=== PATIENT | female | born 1975 | race Caucasian/White ===

== ENCOUNTER 2018-12-11 11:17 | Emergency (ER) | payer OTHER ==
[~2018-12-11] VITALS: Ht 167.6 cm; Wt 72.0 kg
[~2018-12-11 11:17] MED LIST: DOXYCYCL HYC100 MG PO; HYDROCORTISO2.51 EX; MULTIVITAMI9 PO; PROZAC20 MG PO; SYNTHROID175 MCG PO; TERBINAFINE250 MG PO; TRILEPTAL600 M1 PO; [UNRECOGNIZED DRUG - OTHER] PO
[2018-12-11] MEDS ORDERED: DULOXETINE HCL30 MG PO (11:54)
[2018-12-11] MEDS ORDERED: LEVOTHYROXIN200 MCG PO (11:54)
[2018-12-11] MEDS ORDERED: ELIMITE52 TOP (11:55)
[2018-12-11] MEDS ORDERED: NEURONTIN300 MG PO (11:56)
[2018-12-11] MEDS ORDERED: CYCLOBENZAPR10 MG PO (11:56)
[2018-12-11] MEDS ORDERED: DICLOFENAC SODI75 M1 PO (11:56)
[2018-12-11] MEDS ORDERED: MULTIVITAMI1 PO (11:57)
[2018-12-11] MEDS ORDERED: MEDDOSEPAK PO ×2 (11:57→12:10)
[2018-12-11] MEDS ORDERED: HYDROXYZ HCL25 MG PO (11:58)
[2018-12-11] MEDS ORDERED: PERMETHRIN5 % EX (12:10)
[2018-12-11] MEDS ORDERED: METRONIDAZOL500 MG PO (12:10)
[2018-12-11 12:20] VITALS: BP 138/77
== END 2018-12-11 12:20 | disposition home or self-care (01) ==
LOC: ED 11:17
DX: L30.9 Dermatitis, unspecified (principal); N76.0 Acute vaginitis; R21 Rash and other nonspecific skin eruption; L29.9 Pruritus, unspecified

== ENCOUNTER 2019-01-08 21:14 | Emergency (ER) | payer OTHER ==
[~2019-01-08] VITALS: Ht 167.6 cm; Wt 68.1 kg
[~2019-01-08 21:14] MED LIST changes: +CYCLOBENZAPR10 MG PO; +DICLOFENAC SODI75 M1 PO; +DULOXETINE HCL30 MG PO; +ELIMITE52 TOP; +HYDROXYZ HCL25 MG PO; +LEVOTHYROXIN200 MCG PO; +MEDDOSEPAK PO; +METRONIDAZOL500 MG PO; +MULTIVITAMI1 PO; +NEURONTIN300 MG PO; +PERMETHRIN5 % EX
[2019-01-08] MEDS ORDERED: VOLTAREN - GENE75 MG PO (23:22)
[2019-01-08] MEDS ORDERED: TYLENOL # 31 TAB PO (23:23)
[2019-01-08 23:48] VITALS: BP 103/65
== END 2019-01-08 23:48 | disposition home or self-care (01) ==
LOC: ED 21:14
DX: S01.112A Laceration without foreign body of left eyelid and periocular area, initial encounter (principal); S60.511A Abrasion of right hand, initial encounter; S60.512A Abrasion of left hand, initial encounter; S60.812A Abrasion of left wrist, initial encounter; S50.812A Abrasion of left forearm, initial encounter; T14.8XXA Other injury of unspecified body region, initial encounter; E03.9 Hypothyroidism, unspecified; F17.210 Nicotine dependence, cigarettes, uncomplicated; V87.8XXA Person injured in other specified noncollision transport accidents involving motor vehicle (traffic), initial encounter

== ENCOUNTER 2019-03-23 17:16 | Emergency (ER) | payer OTHER ==
[~2019-03-23] VITALS: Ht 167.6 cm; Wt 75.0 kg
[~2019-03-23 17:16] MED LIST changes: +FLEXERIL PO; +TYLENOL # 31 TAB PO; +VOLTAREN - GENE75 MG PO
[2019-03-23 18:27] LABS: URINE BILIRUBIN - DIPSTICK NEGATIVE (NEGATIVE); URINE BLOOD DIPSTICK MODERATE (NEGATIVE); URINE COLOR YELLOW; URINE GLUCOSE - DIPSTICK NEGATIVE (NEGATIVE); URINE KETONE NEGATIVE (NEGATIVE); URINE NITRITE - DIPSTICK NEGATIVE (Negative); URINE PROTEIN - DIPSTICK TRACE mg/dL (NEG-TRACE); URINE UROBILINOGEN - DIPSTICK 0.2 E.U./dL (0.2)
[2019-03-23 18:30] LABS: URINE LEUK ESTERASE MODERATE (NEGATIVE)
[2019-03-23 18:38] LABS: URINE SQUAMOUS EPITHELIAL CELL FEW EPI/hpf (0-FEW); URINE WBC >100 WBC/hpf (0-5)
[2019-03-23] MEDS ORDERED: FLONASE AL50 MCG/ACT (20:14)
[2019-03-23] MEDS ORDERED: CLARITIN10 M1 PO (20:14)
[2019-03-23] MEDS ORDERED: ULTRAM50 M1 PO (20:14)
[2019-03-23] MEDS ORDERED: BACTRIM DS1 TAB PO (20:20)
[2019-03-23 20:25] VITALS: BP 121/76
== END 2019-03-23 20:25 | disposition home or self-care (01) ==
LOC: ED 17:16
PROVIDERS: Emergency Medicine
DX: S09.8XXA Other specified injuries of head, initial encounter (principal); N39.0 Urinary tract infection, site not specified; B96.20 Unspecified Escherichia coli [E. coli] as the cause of diseases classified elsewhere; F17.200 Nicotine dependence, unspecified, uncomplicated

== ENCOUNTER 2019-03-26 14:18 | Emergency (ER) | payer OTHER ==
[~2019-03-26] VITALS: Ht 167.6 cm; Wt 70.9 kg
[~2019-03-26 14:18] MED LIST changes: +BACTRIM DS1 TAB PO; +CLARITIN10 M1 PO; +FLONASE AL50 MCG/ACT; +ULTRAM50 M1 PO
[2019-03-26] MEDS ORDERED: DULOXETINE HCL30 MG PO (14:32)
[2019-03-26 15:18] VITALS: BP 112/59
== END 2019-03-26 15:18 | disposition home or self-care (01) ==
LOC: ED 14:18
DX: S20.212A Contusion of left front wall of thorax, initial encounter (principal); E03.9 Hypothyroidism, unspecified; F17.200 Nicotine dependence, unspecified, uncomplicated; W18.30XA Fall on same level, unspecified, initial encounter; Y92.009 Unspecified place in unspecified non-institutional (private) residence as the place of occurrence of the external cause

== ENCOUNTER 2019-04-04 18:39 | Emergency (ER) | payer OTHER ==
[~2019-04-04] VITALS: Ht 167.6 cm; Wt 72.0 kg
[2019-04-04] MEDS ORDERED: DULOXETINE HCL30 MG PO (19:09)
[2019-04-04] MEDS ORDERED: NAPROXEN500 MG PO (19:18)
[2019-04-04] MEDS ORDERED: MEDDOSEPAK PO (19:18)
[2019-04-04 19:35] VITALS: BP 111/72
== END 2019-04-04 19:35 | disposition home or self-care (01) ==
LOC: ED 18:39
DX: M25.532 Pain in left wrist (principal); M25.531 Pain in right wrist; M25.542 Pain in joints of left hand; M25.541 Pain in joints of right hand; M25.552 Pain in left hip; M25.551 Pain in right hip; E03.9 Hypothyroidism, unspecified; F17.210 Nicotine dependence, cigarettes, uncomplicated

== ENCOUNTER 2019-10-10 | Emergency (ER) | payer SELFPAY ==
[~2019-10-10] MED LIST changes: +NAPROXEN500 MG PO
[2019-10-10] MEDS ORDERED: REXULTI2 MG (13:17)
[2019-10-10] MEDS ORDERED: DULOXETINE HYDR40 MG (13:22)
[2019-10-10] MEDS ORDERED: AMITRIPTYLIN25 MG PO (13:24)
--- NOTE | 2019-10-13 09:17 | NUR ---
Notified patient of Covid results (Negative). Advised patient to follow up with PCP or return to ED with urgent needs. Advised pt to continue practicing Covid prevention including social distancing and hand washing.
== END 2019-10-10 13:55 | disposition home or self-care (01) | DRG 153 ==
DX: J06.9 Acute upper respiratory infection, unspecified (principal); E03.9 Hypothyroidism, unspecified; F17.200 Nicotine dependence, unspecified, uncomplicated; Z20.828 Contact with and (suspected) exposure to other viral communicable diseases

== ENCOUNTER 2020-01-02 17:04 | Emergency (ER) | payer OTHER ==
[~2020-01-02] VITALS: Ht 167.6 cm; Wt 85.0 kg
[~2020-01-02 17:04] MED LIST changes: +AMITRIPTYLIN25 MG PO; +DULOXETINE HYDR40 MG; +REXULTI2 MG
[2020-01-02] MEDS ORDERED: CYCLOBENZAPR5 MG PO (18:32)
[2020-01-02 18:53] VITALS: BP 128/76
== END 2020-01-02 18:53 | disposition home or self-care (01) | DRG 563 ==
LOC: ED 17:04
DX: S39.012A Strain of muscle, fascia and tendon of lower back, initial encounter (principal); S16.1XXA Strain of muscle, fascia and tendon at neck level, initial encounter; F17.200 Nicotine dependence, unspecified, uncomplicated; V89.2XXA Person injured in unspecified motor-vehicle accident, traffic, initial encounter